=== PATIENT | female | born 1985 | race African-American/Black ===

== ENCOUNTER 2020-10-24 15:39 | Emergency (ER) | payer OTHER ==
[~2020-10-24] VITALS: Ht 152.4 cm; Wt 55.8 kg
[2020-10-24] MEDS ORDERED: METOCLOPRAMIDE HCL 10 MG TABLET PO ONE (16:15)
[2020-10-24] MEDS ORDERED: ACETAMINOPHEN 325 MG TABLET PO ONE (16:15)
[2020-10-24] MEDS ORDERED: ACETAMINOPHEN 325 MG TABLET ONE (16:28)
[2020-10-24] MEDS ORDERED: METOCLOPRAMIDE HCL 10 MG TABLET ONE (16:28)
[2020-10-24 17:00] LABS: *URINE HCG, QUAL NEGATIVE (NEGATIVE)
[2020-10-24 17:15] VITALS: BP 121/60
--- NOTE | 2020-10-24 17:16 | NUR ---
Patient discharged to home in stable condition. Written and verbal after care instructions given. Patient verbalizes understanding of instructions. Stressed follow up or return to ER for worsening s/s.
== END 2020-10-24 17:16 | disposition home or self-care (01) ==
LOC: ER 15:39
DX: S06.0X0A Concussion without loss of consciousness, initial encounter (principal); W22.8XXA Striking against or struck by other objects, initial encounter; Y93.F9 Activity, other caregiving; Y92.59 Other trade areas as the place of occurrence of the external cause; Y99.0 Civilian activity done for income or pay; R40.2142 Coma scale, eyes open, spontaneous, at arrival to emergency department; R40.2362 Coma scale, best motor response, obeys commands, at arrival to emergency department; R40.2252 Coma scale, best verbal response, oriented, at arrival to emergency department; Z86.69 Personal history of other diseases of the nervous system and sense organs
CPT/HCPCS: 84703; A4663; J8597